=== PATIENT | female | born 1935 | race Caucasian/White ===

== ENCOUNTER → 2017-01-08 | Outpatient (CLI) | payer MEDICARE, BC, OTHER | END | disposition home or self-care (01) | LOC: RAD.S 13:39 | DX: N63 Unspecified lump in breast (principal) ==

== ENCOUNTER → 2017-01-13 | Outpatient (CLI) | payer MEDICARE, BC, OTHER | END | disposition home or self-care (01) | LOC: RAD.S 08:52 | PROC: 0HBT3ZX Excision of Right Breast, Percutaneous Approach, Diagnostic (ICD-10-PCS; principal; 2017-01-13) | DX: C50.911 Malignant neoplasm of unspecified site of right female breast (principal); Z17.0 Estrogen receptor positive status [ER+] ==

== ENCOUNTER 2017-02-10 06:36 | Day surgery (SDC) | payer MEDICARE, BC, OTHER ==
[~2017-02-10] VITALS: Ht 162.6 cm; Wt 80.0 kg
--- NOTE | 2017-03-03 07:06 | OR ---
ADMIT: 02/10/2017 RM/LOC: [facility] MR#: [id number] [place], [place] [id number] ALLY BEASLEY [address] [place] [address] Operative/Delivery Room Report SEX: F AGE: 81 : 1935 SURGERY DATE: 02/10/2017 SURGEON: Albin Duenas MD PREOPERATIVE DIAGNOSIS: Right breast cancer. POSTOPERATIVE DIAGNOSIS: Right-sided breast cancer, upper medial quadrant. PROCEDURE PERFORMED: 1. Right-sided lumpectomy, upper medial quadrant. 2. Spring lymph node biopsy, right axilla. 3. Injection of Lymphazurin for sentinel lymph node identification. DRY CLEANING COUNTER CLERK: CARYN Penaloza. ANESTHESIA: General endotracheal with addition of Marcaine in wound postprocedure. ESTIMATED BLOOD LOSS: Less than 20 mL. DESCRIPTION OF PROCEDURE: After appropriate informed consent was obtained, the patient was brought to the operating room. General endotracheal anesthesia was induced. Patient's right breast was injected with 3 mL of Lymphazurin in the periareolar position. Her breast and axilla were then prepped and draped in sterile fashion. I started with the sentinel lymph node biopsy. Unfortunately, the technetium did not seem to travel very well from the injection site to the axilla, so had very little signal in the right axilla. I did end up making incision in the right axilla and I was able to identify a blue lymphatic leading to a small blue lymph node. This lymph node was excised in its entirety and a second lymph node was also excised, but I really again did not have much of any signal in the axilla with the gamma probe, so our counts were only like 20 both on the lymph node and in the axilla essentially just background counts. The axillary incision was inspected and appeared hemostatic, so, I then proceeded with the lumpectomy. An incision was made in the upper medial quadrant of her right breast and this was carried deep with cautery, and a generous lumpectomy specimen was taken ADMIT: 02/10/2017 RM/LOC: [facility] MR#: [id number] [id number] ALLY BEASLEY [address] [place] [address] Operative/Delivery Room Report SEX: F AGE: 81 : 1935 around this palpable mass in the upper medial quadrant. With the specimen removed, it was peeled off the chest wall, it was handed off and sent to pathology. The wound was then copiously irrigated out and then dried up with cautery. Once I was satisfied with hemostasis, the wound was then infiltrated with Marcaine as was the axillary incision. Both wounds were closed with 3-0 Vicryl in the dermal layer, and running 4-0 Monocryl in the subcuticular layer. Sterile dressings were then applied. CARYN Penaloza assisted in this entire procedure. His help was necessary for retraction. Albin Duenas MD/ dunia JOB #: [id number] CC: Albin Duenas, Attending Physician Liyah Page, Family Physician MD Liyah Alexander MD
== END 2017-02-10 14:50 | disposition home or self-care (01) ==
LOC: SSS 06:36 → RAD.S 08:30 → SSS 08:30 → EDSTATUS 08:30 → SSS 14:50
PROC: 0HBT0ZZ Excision of Right Breast, Open Approach (ICD-10-PCS; principal; 2017-02-10)
PROC: 07B50ZX Excision of Right Axillary Lymphatic, Open Approach, Diagnostic (ICD-10-PCS; principal; 2017-02-10)
DX: C50.211 Malignant neoplasm of upper-inner quadrant of right female breast (principal); Z17.0 Estrogen receptor positive status [ER+]; I10 Essential (primary) hypertension; E11.9 Type 2 diabetes mellitus without complications; Z98.49 Cataract extraction status, unspecified eye; Z98.890 Other specified postprocedural states; Z79.899 Other long term (current) drug therapy; Z79.891 Long term (current) use of opiate analgesic; Z87.891 Personal history of nicotine dependence